=== PATIENT | female | born 1995 | race Two or more races ===

== ENCOUNTER 2021-07-02 13:01 | Emergency (ER) | payer MEDICARE ==
[2021-07-02] MEDS ORDERED: BEBTELOVIMAB (EUA) 175 MG/2 ML VIAL IVPUSH ONE (13:15)
[2021-07-02 13:38] VITALS: BP 110/63; TEMP 99.1; BMI 48.0
[2021-07-02 22:21] VITALS: PULSE 86
== END 2021-07-02 18:00 | disposition home or self-care (01) ==
LOC: JER 13:01
PROC: 3E033NZ Introduction of Analgesics, Hypnotics, Sedatives into Peripheral Vein, Percutaneous Approach (ICD-10-PCS; principal; 2021-07-02)
DX: U07.1 COVID-19 (principal)
CPT/HCPCS: 96374; 99284-25; M0222; Q0222